=== PATIENT | male | born 1950 | race Caucasian/White ===

== ENCOUNTER 2020-01-18 08:49 | Observation (INO) ==
[~2020-01-18 08:49] MED LIST: Buffered Lidocaine 1% SYRIN 1 ml INTRADERM ONE; Dexamethasone IV 4 MG/ML VIAL 1 ml VIAL IV SLOW PU ONE; Lactated Ringers 1000 ml BAG 1,000 ML IV SCH
[2020-01-18] MEDS ORDERED: Dexamethasone IV 4 MG/ML VIAL 1 ml VIAL ONE (09:12)
[2020-01-18] MEDS ORDERED: Buffered Lidocaine 1% SYRIN 1 ml INTRADERM ONE (09:13)
[2020-01-18] MEDS ORDERED: ceFAZolin 2 GM PREMIX 2 GM/50 ML BAG ONE (09:13)
[2020-01-18] MEDS ORDERED: fentaNYL 100 mcg/2 ml 50 MCG/ML VIAL ONE (09:53)
[2020-01-18] MEDS ORDERED: Midazolam 2 mg/2 ml VIAL 1 mg/ml 2 ml VIAL (2 mg) ONE ×2 (09:53→12:40)
[2020-01-18] MEDS ORDERED: Lidocaine 2% PF 5 ML VIAL ONE (10:22)
[2020-01-18] MEDS ORDERED: ROPIVACAINE 5 MG/ML 30 ML BTL (0.5%) ONE ×2 (10:22→11:24)
[2020-01-18] MEDS ORDERED: Bupivacaine 0.25% SDV PF 10 ML VIAL INJ ONE (11:33)
[2020-01-18] MEDS ORDERED: Ondansetron 4 mg VIAL 2 MG/ML 2 ml VIAL IV PRN ×2 (12:17→14:28)
[2020-01-18] MEDS ORDERED: fentaNYL 100 mcg/2 ml 50 MCG/ML VIAL IV PRN (12:17)
[2020-01-18] MEDS ORDERED: Naloxone 0.4 mg VIAL 0.4 mg/ml 1 ml VIAL IV PRN (12:17)
[2020-01-18] MEDS ORDERED: HYDROmorphone 1 MG/1 ML SYRINGE IV PRN (12:17)
[2020-01-18] MEDS ORDERED: Propofol 10 MG/ML 20 ML BTL ONE (13:17)
[2020-01-18] MEDS ORDERED: oxyCODONE/Acetamin 5/325 mg TAB PO PRN (14:28)
[2020-01-18] MEDS ORDERED: Magnesium Hydroxide LIQ 30 ML UDC PO PRN (14:28)
[2020-01-18] MEDS ORDERED: Ondansetron ODT 4 mg TAB 4 MG TAB PO PRN (14:28)
[2020-01-18] MEDS ORDERED: diPHENhydraMINE IV 50 MG/ML 1 ml VIAL (BENADRYL) IV PRN (14:28)
[2020-01-18] MEDS ORDERED: Morphine 2 MG/ML SYRINGE IV PRN (14:28)
[2020-01-18] MEDS ORDERED: Lactulose 30 ml UDC PO PRN (14:28)
[2020-01-18] MEDS ORDERED: diPHENhydraMINE 25 mg TAB PO PRN (14:28)
[2020-01-18] MEDS ORDERED: oxyCODONE/Acetamin 5/325 mg TAB ONE (14:56)
[2020-01-18] MEDS ORDERED: Lactated Ringers 1000 ml BAG 1,000 ML IV SCH (15:00)
[2020-01-18] MEDS: oxyCODONE/Acetamin 5/325 mg TAB PO PRN ×2 (17:40→22:04)
[2020-01-18] MEDS: Magnesium Hydroxide LIQ 30 ML UDC PO SCH (21:04)
[2020-01-18] MEDS: ceFAZolin 1 GM ADVAN 1 GM in NS 0.9% 50 ML 50 ML IVPB SCH (21:04)
[2020-01-19] MEDS: oxyCODONE/Acetamin 5/325 mg TAB PO PRN ×3 (02:33→12:11)
[2020-01-19] MEDS: ceFAZolin 1 GM ADVAN 1 GM in NS 0.9% 50 ML 50 ML IVPB SCH ×2 (05:27→11:58)
[2020-01-19 06:17] LABS: Hematocrit 37 % (42-52); Hemoglobin 12.8 g/dL (14.0-18.0); Mean Platelet Volume 8.7 fL (7.4-10.4); Platelet Count 224 10^3/uL (150-450)
[2020-01-19 06:36] LABS: Calcium 8.7 mg/dL (8.6-10.3); EGFR African American 138.4 (>60); EGFR Non-African American 114.4 (>60); Potassium 4.1 mmol/L (3.5-5.0)
[2020-01-19] MEDS: Magnesium Hydroxide LIQ 30 ML UDC PO SCH (08:51)
[2020-01-19] MEDS ORDERED: Vitamin THERAPEUTIC TAB PO SCH (09:00)
[2020-01-19 11:18] VITALS: BP 136/70
== END 2020-01-19 13:37 | disposition home or self-care (01) ==
LOC: INTOOBSV 08:49 → AA 08:49 → SSU 14:29
PROVIDERS: ADMIT Orthopaedic Surgery Adult Reconstructive Orthopaedic Surgery; ATTEND Orthopaedic Surgery Adult Reconstructive Orthopaedic Surgery

== ENCOUNTER 2024-02-14 05:45 | Observation (INO) ==
[~2024-02-14 05:45] MED LIST changes: -Buffered Lidocaine 1% SYRIN 1 ml INTRADERM ONE; -Dexamethasone IV 4 MG/ML VIAL 1 ml VIAL IV SLOW PU ONE; -Lactated Ringers 1000 ml BAG 1,000 ML IV SCH; +Metoclopramide 5 MG/ML VIAL (10 mg) IV PRN; +NS 0.45% 1000 ml BAG 1,000 ML IV SCH; +Naloxone 0.4 mg VIAL 0.4 mg/ml 1 ml VIAL IV PRN; +Ondansetron 4 mg VIAL 2 MG/ML 2 ml VIAL IV PRN; +ROPIVACAINE 5 MG/ML 30 ML BTL (0.5%) ONE
[2024-02-14] MEDS ORDERED: Tranexamic Acid 1 GM/100ML BAG 2,000 MG/200 ML BAG IV ONE (06:25)
[2024-02-14] MEDS ORDERED: ceFAZolin 2 GM PREMIX 2 GM/50 ML BAG ONE (06:25)
[2024-02-14] MEDS: Scopolamine 1 mg/72hr PATCH TRANSDERM ONE (06:40)
[2024-02-14] MEDS: Lactated Ringers 1000 ml BAG 1,000 ML IV SCH ×2 (06:40→11:59)
[2024-02-14] MEDS: Buffered Lidocaine 1% SYRIN 1 ml INTRADERM ONE (06:40)
[2024-02-14 06:47] LABS: Rapid COVID-19 Molecular Undetected (Undetected)
[2024-02-14] MEDS ORDERED: Rocuronium 50 mg VIAL 10 mg/ml 5 ml VIAL (50 mg) ONE ×2 (07:05→09:14)
[2024-02-14] MEDS ORDERED: fentaNYL 100 mcg/2 ml 50 MCG/ML VIAL ONE ×4 (07:06→10:38)
[2024-02-14] MEDS ORDERED: Midazolam 2 mg/2 ml VIAL 1 mg/ml 2 ml VIAL (2 mg) ONE ×2 (07:07→07:58)
[2024-02-14] MEDS ORDERED: Lidocaine 2% PF 5 ML VIAL ONE (07:59)
[2024-02-14] MEDS ORDERED: KETAMINE HCL 10 MG/ML 20 ml VIAL (200 MG) ONE (08:06)
[2024-02-14] MEDS ORDERED: Ondansetron 4 mg VIAL 2 MG/ML 2 ml VIAL ONE (08:07)
[2024-02-14] MEDS ORDERED: Dexamethasone IV 4 MG/ML VIAL 1 ml VIAL ONE (08:07)
[2024-02-14] MEDS ORDERED: Morphine 2 MG/ML SYRINGE IV PRN (08:08)
[2024-02-14] MEDS ORDERED: Ondansetron ODT 4 mg TAB 4 MG TAB PO PRN (08:08)
[2024-02-14] MEDS ORDERED: Calcium Carb (TUMS) 500 mg CHEW TAB PO PRN (08:08)
[2024-02-14] MEDS ORDERED: Magnesium Hydroxide LIQ 30 ML UDC PO PRN (08:08)
[2024-02-14] MEDS ORDERED: Lactulose 30 ml UDC PO PRN (08:08)
[2024-02-14] MEDS ORDERED: Ondansetron 4 mg VIAL 2 MG/ML 2 ml VIAL IV PRN (08:08)
[2024-02-14] MEDS ORDERED: HYDROmorphone 0.5 MG/0.5 ML SYRINGE ONE ×2 (08:19→08:26)
[2024-02-14] MEDS: fentaNYL 100 mcg/2 ml 50 MCG/ML VIAL IV PRN (10:39)
[2024-02-14] MEDS: Acetaminophen IV 1 GM/100ML 1,000 MG/100 ML BAG IV ONE (10:41)
[2024-02-14] MEDS: Magnesium Hydroxide LIQ 30 ML UDC PO SCH (11:00)
[2024-02-14] MEDS: Vitamin THERAPEUTIC TAB PO SCH (11:01)
[2024-02-14 15:32] VITALS: BP 157/87
[2024-02-14] MEDS: ceFAZolin 2 GM PREMIX 2 GM/50 ML BAG IV SCH (15:32)
== END 2024-02-14 16:50 | disposition home or self-care (01) ==
LOC: SSU 05:45 → OR 05:45 → EDSTATUS 08:45
PROVIDERS: ADMIT Orthopaedic Surgery Adult Reconstructive Orthopaedic Surgery; ATTEND Orthopaedic Surgery Adult Reconstructive Orthopaedic Surgery